=== PATIENT | female | born 1990 | race Caucasian/White ===

== ENCOUNTER → 2016-08-19 | Outpatient (REF) | payer MEDICAID ==
[~2016-08-19] MED LIST: /LORA10TA PO; ADV250INH INH; CONC54TA2 PO; ORTHDIS TD; PERCOCET FT; PERCOCET PO; VENTAER INH
== END ==
LOC: M SFHCPLAZ 16:52
PROVIDERS: ATTEND Nurse Practitioner Family
DX: J02.9 Acute pharyngitis, unspecified (principal)

== ENCOUNTER 2016-10-17 17:55 | Emergency (ER) | payer MEDICAID ==
[~2016-10-17] VITALS: Ht 157.5 cm; Wt 80.3 kg
[2016-10-17] MEDS ORDERED: ADVI200T PO (18:09)
[2016-10-17] MEDS ORDERED: MONT10TA2 PO (18:09)
[2016-10-17] MEDS ORDERED: FLUT11IN INH (18:09)
[2016-10-17] MEDS ORDERED: ONDANSETRON 4MG/2ML VIAL (J2405) IV ONE (19:30)
[2016-10-17] MEDS ORDERED: KETOROLAC 30 MG/ML VIAL (J1885) IV ONE (19:30)
[2016-10-17] MEDS ORDERED: NS 1,000 ML IV ONE (19:30)
[2016-10-17 20:07] LABS: BASO # 0.1 K/mm3 (0.0-0.2); BASO % 0.7 % (0.0-1.0); EOS # 0.1 K/mm3 (0.0-0.50); EOS % 1.1 % (0.0-3.0); LARGE UNSTAINED CELL # 0.1 K/mm3 (0.0-0.4); LARGE UNSTAINED CELL % 1.3 % (0.0-4.0); LYMPH # 2.3 K/mm3 (1.5-6.5); LYMPH % 25.8 % (24.0-44.0); MEAN CORPUSCULAR HGB CONC 32.5 g/dl (32.0-36.5); MONO # 0.7 K/mm3 (0.0-0.8); MONO % 8.2 % (0.0-5.0); NEUTROPHILS # 5.3 K/mm3 (1.8-7.7); PLATELET COUNT, AUTOMATED 282 k/mm3 (150-450); RED CELL DISTRIBUTION WIDTH 13.2 % (11.5-14.5); WHITE BLOOD COUNT 8.4 K/mm3 (4.0-10.0)
[2016-10-17 20:21] LABS: CONTROL LINE HCG INT CTR LINE PRESENT
[2016-10-17 20:22] LABS: ALBUMIN 3.6 GM/DL (3.2-5.2); ALKALINE PHOSPHATASE 71 U/L (45-117); ALT/SGPT 17 U/L (12-78); AMYLASE 46 U/L (25-115); ANION GAP 6 MEQ/L (8-16); AST/SGOT < 3 U/L (15-37); BILIRUBIN,DIRECT < 0.1 MG/DL (0.0-0.2); BILIRUBIN,TOTAL 0.2 MG/DL (0.2-1.0); BLOOD UREA NITROGEN 6 MG/DL (7-18); CALCIUM LEVEL 8.8 MG/DL (8.5-10.1); CARBON DIOXIDE LEVEL 30 MEQ/L (21-32); CHLORIDE LEVEL 105 MEQ/L (98-107); CREATININE FOR GFR 0.81 MG/DL (0.55-1.02); GLOMERULAR FILTRATION RATE > 60.0 (>60); GLUCOSE, FASTING 93 MG/DL (70-105); POTASSIUM SERUM 3.8 MEQ/L (3.5-5.1); SODIUM LEVEL 141 MEQ/L (136-145); TOTAL PROTEIN 7.6 GM/DL (6.4-8.2)
[2016-10-17] MEDS ORDERED: ISOVUE-370 76% 100ML VIAL (Q9967) As Ordered ONE (20:33)
--- NOTE | 2016-10-17 21:30 | REPUSA ---
CT of the abdomen and pelvis with contrast Clinical statement: Pain. Technique: Multiple axial CT images were obtained from the base of the lungs through the floor of the pelvis utilizing 5 mm axial slices after administration of nonionic intravenous contrast. Coronal an d sagittal reconstructions were also obtained. Comparison: 09/08/2012. Findings: Chest: The visualized lung bases are clear. Abdomen: The liver, spleen, pancreas, kidneys, gallbladder, and adrenal glands are unremarkable. The aorta is within normal limits. There is no evidence of abdominal lymphadenopathy or ascites. Pelvis: The bowel is unremarkable, with no obstructive or inflammatory changes. The urinary bladder i s within normal limits. The other pelvic structures appear grossly intact. There is no evidence of pe lvic lymphadenopathy or ascites. Bones: There are no suspicious osseous abnormalities seen. Impression: Unremarkable CT examination of the abdomen and pelvis.
[2016-10-17] MEDS ORDERED: ZOFR4TAB3 PO (22:04)
[2016-10-17 22:11] VITALS: BP 124/68
--- NOTE | 2016-10-18 09:01 | REP ---
PA LATERAL CHEST: 10/17/2016. Clinical history: Abdominal pain. Comparison: PA chest 10/03/2013, abdominal series 02/08/2008. Findings: PA chest: Lungs are well inflated without infiltrate, effusion, atelectasis or mass. Heart, mediastinal and hilar contours are normal. Airway intact and the bony thorax shows no focal lesion. No free air under the diaphragm. Impression: 1. No acute cardiopulmonary change. Negative chest. Signed by Shane Dixon MD 10/18/2016 08:53 A
[2016-10-18] MEDS ORDERED: CONC54TA4 PO (16:52)
[2016-10-18] MEDS ORDERED: CLAR10CA3 PO (16:52)
[2016-10-18] MEDS ORDERED: ALBU17IN INH (16:52)
[2016-10-18] MEDS ORDERED: ADV250INH INH (16:52)
--- NOTE | 2016-10-18 21:01 | ECGEPIP ---
Stationary ECG Study [facility] - ED Test Date: 2016-10-17 Pat Name: MARCO DENTON Department: Room: - Gender: F [employer]: daniel : 1990 Requested By: Carlos Mcdaniel Order Number: [id number] Reading MD: Ashanti Gary Measurements Intervals [place] Rate: 60 P: 29 WV: 132 QRS: 9 QRSD: 109 T: 20 QT: 385 QTc: 387 Interpretive Statements SINUS RHYTHM WITH SINUS ARRHYTHMIA NO PRIOR FOR COMPARISON Electronically Signed On 10-18-2016 21:00:54 EDT by Ashanti Gary
[2016-10-18] MEDS ORDERED: MACR100C3 PO (21:09)
[2016-10-18] MEDS ORDERED: ALFU10TA2 PO (21:15)
[2016-10-18] MEDS ORDERED: ZOFR4TAB3 PO (21:18)
== END 2016-10-17 22:14 | disposition home or self-care (01) ==
LOC: M ED 18:57
DX: R10.9 Unspecified abdominal pain (principal); R11.10 Vomiting, unspecified
CPT/HCPCS: 71020; 74177; 80048; 80076; 81001; 82150; 83690; 84703; 85025; 87086; 93005; 96374; 96375; 99284; J1885; J2405; Q9967

== ENCOUNTER 2016-10-18 16:25 | Emergency (ER) | payer MEDICAID ==
[~2016-10-18] VITALS: Ht 157.5 cm; Wt 79.8 kg
[~2016-10-18 16:25] MED LIST changes: +ADVI200T PO; +FLUT11IN INH; +MONT10TA2 PO; +ZOFR4TAB3 PO
[2016-10-18] MEDS ORDERED: ALBU17IN INH (16:52)
[2016-10-18] MEDS ORDERED: CLAR10CA3 PO (16:52)
[2016-10-18] MEDS ORDERED: CONC54TA4 PO (16:52)
[2016-10-18] MEDS ORDERED: ADV250INH INH (16:52)
[2016-10-18 19:03] LABS: BASO % 0.4 % (0.0-1.0); EOS # 0.1 K/mm3 (0.0-0.50); EOS % 1.2 % (0.0-3.0); LARGE UNSTAINED CELL # 0.1 K/mm3 (0.0-0.4); LARGE UNSTAINED CELL % 1.1 % (0.0-4.0); LYMPH # 2.7 K/mm3 (1.5-6.5); MEAN CORPUSCULAR HEMOGLOBIN 28.8 pg (27.0-33.0); MEAN CORPUSCULAR HGB CONC 32.3 g/dl (32.0-36.5); MEAN CORPUSCULAR VOLUME 89.2 fl (80.0-96.0); MONO # 0.6 K/mm3 (0.0-0.8); MONO % 5.6 % (0.0-5.0); NEUTROPHILS # 7.2 K/mm3 (1.8-7.7); NEUTROPHILS % 67.6 % (36.0-66.0); PLATELET COUNT, AUTOMATED 264 k/mm3 (150-450); RED CELL DISTRIBUTION WIDTH 13.1 % (11.5-14.5); WHITE BLOOD COUNT 10.7 K/mm3 (4.0-10.0)
[2016-10-18 19:17] LABS: CONTROL LINE HCG INT CTR LINE PRESENT
[2016-10-18 19:25] LABS: ALBUMIN 3.5 GM/DL (3.2-5.2); ALKALINE PHOSPHATASE 65 U/L (45-117); ALT/SGPT 17 U/L (12-78); ANION GAP 5 MEQ/L (8-16); AST/SGOT < 3 U/L (15-37); BILIRUBIN,TOTAL 0.3 MG/DL (0.2-1.0); BLOOD UREA NITROGEN 5 MG/DL (7-18); CALCIUM LEVEL 8.4 MG/DL (8.5-10.1); CARBON DIOXIDE LEVEL 29 MEQ/L (21-32); CHLORIDE LEVEL 105 MEQ/L (98-107); CREATININE FOR GFR 0.83 MG/DL (0.55-1.02); GLOMERULAR FILTRATION RATE > 60.0 (>60); GLUCOSE, FASTING 86 MG/DL (70-105); SODIUM LEVEL 139 MEQ/L (136-145); TOTAL PROTEIN 7.4 GM/DL (6.4-8.2)
--- NOTE | 2016-10-18 19:40 | REPUSA ---
Clinical history: Renal colic. Comparison: CT, 10/17/2016. Findings: The urinary bladder appears unremarkable. No urinary bladder masses are seen. The right kid martín measures 11.1 x 5.1 x 3.9 cm. The left kidney measures 12.0 x 5.4 x 5.8 cm. The kidneys demonstra te normal echotexture and echogenicity. There is no evidence of hydronephrosis or nephrolithiasis. No renal masses are seen. No free fluid is appreciated. Impression: Unremarkable ultrasound examination of the kidneys.
[2016-10-18] MEDS ORDERED: MACR100C3 PO (21:09)
[2016-10-18] MEDS ORDERED: NITROFURANTOIN (MACROBID) 100 MG CAP PO ONE (21:15)
[2016-10-18] MEDS ORDERED: ONDANSETRON 4 MG TAB (S0181) PO ONE (21:15)
[2016-10-18] MEDS ORDERED: ALFU10TA2 PO (21:15)
[2016-10-18] MEDS ORDERED: ZOFR4TAB3 PO (21:18)
[2016-10-18] MEDS ORDERED: KETOROLAC 30 MG/ML VIAL (J1885) As Ordered ONE (21:28)
[2016-10-18] MEDS ORDERED: KETOROLAC 60 MG/2 ML VIAL (J1885) IM ONE (21:30)
[2016-10-18 22:00] VITALS: BP 137/80
[2016-10-19] MEDS ORDERED: ALFUZOSIN 10 MG PO SCH (09:00)
== END 2016-10-18 22:05 | disposition home or self-care (01) ==
LOC: M ED 17:30
DX: N23 Unspecified renal colic (principal); N39.0 Urinary tract infection, site not specified

== ENCOUNTER → 2017-01-25 | Outpatient (CLI) | payer MEDICAID ==
[~2017-01-25] MED LIST changes: +ALBU17IN INH; +ALFU10TA2 PO; +CLAR10CA3 PO; +CONC54TA4 PO; +MACR100C43 PO
[2017-01-25 09:09] LABS: ANION GAP 8 MEQ/L (8-16); BLOOD UREA NITROGEN 9 MG/DL (7-18); CALCIUM LEVEL 9.2 MG/DL (8.5-10.1); CARBON DIOXIDE LEVEL 29 MEQ/L (21-32); CHLORIDE LEVEL 102 MEQ/L (98-107); CREATININE FOR GFR 0.71 MG/DL (0.55-1.02); GLOMERULAR FILTRATION RATE > 60.0 (>60); GLUCOSE, FASTING 85 MG/DL (70-105); POTASSIUM SERUM 4.3 MEQ/L (3.5-5.1); SODIUM LEVEL 139 MEQ/L (136-145)
== END ==
LOC: M LAB 07:51
PROVIDERS: ATTEND Nurse Practitioner Family
DX: E66.9 Obesity, unspecified (principal)

== ENCOUNTER 2017-06-05 22:44 | Emergency (ER) | payer MEDICARE, MEDICAID ==
[~2017-06-05] VITALS: Ht 157.5 cm; Wt 77.7 kg
[2017-06-06] MEDS ORDERED: AMOX500C PO (06:57)
[2017-06-06] MEDS ORDERED: cefTRIAXone SOD 1 GM VIAL (J0696) IM ONE (07:00)
[2017-06-06 07:29] VITALS: BP 131/75
== END 2017-06-06 07:30 | disposition home or self-care (01) ==
LOC: M ED 22:44
DX: J02.0 Streptococcal pharyngitis (principal); Z88.5 Allergy status to narcotic agent; Z88.2 Allergy status to sulfonamides; Z79.51 Long term (current) use of inhaled steroids
CPT/HCPCS: 87804; 87880; 96372; 99284; J0696

== ENCOUNTER 2017-10-04 17:33 | Emergency (ER) | payer MEDICARE, MEDICAID ==
[2017-10-04] MEDS: IBUPROFEN 600 MG TAB PO (21:00)
== END 2017-10-04 22:23 | disposition home or self-care (01) ==
LOC: M ED 17:33
DX: S83.002A Unspecified subluxation of left patella, initial encounter (principal); W01.0XXA Fall on same level from slipping, tripping and stumbling without subsequent striking against object, initial encounter; Y92.89 Other specified places as the place of occurrence of the external cause; Z79.899 Other long term (current) drug therapy; Z79.3 Long term (current) use of hormonal contraceptives; Z88.2 Allergy status to sulfonamides; Z88.5 Allergy status to narcotic agent
CPT/HCPCS: 73564

== ENCOUNTER 2017-10-11 14:26 | Outpatient (RCR) | payer MEDICARE, MEDICAID | END 2017-11-08 | LOC: M PT 10-14 07:26 | DX: Z47.89 Encounter for other orthopedic aftercare (principal); S86.912A Strain of unspecified muscle(s) and tendon(s) at lower leg level, left leg, initial encounter; M22.3X2 Other derangements of patella, left knee | CPT/HCPCS: 97110 ==

== ENCOUNTER 2018-04-06 20:38 | Emergency (ER) | payer MEDICARE, MEDICAID ==
[2018-04-06] MEDS: ACETAMINOPHEN 325 MG TAB PO (23:02)
== END 2018-04-07 00:39 | disposition home or self-care (01) ==
LOC: M ED 04-07 00:39
DX: M25.572 Pain in left ankle and joints of left foot (principal); Z88.5 Allergy status to narcotic agent; Z88.2 Allergy status to sulfonamides; Z79.899 Other long term (current) drug therapy; Z79.51 Long term (current) use of inhaled steroids
CPT/HCPCS: 73610

== ENCOUNTER 2018-05-23 07:09 | Outpatient (RCR) | payer MEDICARE, MEDICAID | END 2018-06-10 | LOC: M PT 07:09 | DX: S90.02XA Contusion of left ankle, initial encounter (principal); X58.XXXA Exposure to other specified factors, initial encounter; Y92.9 Unspecified place or not applicable; Y93.9 Activity, unspecified | CPT/HCPCS: 97110 ==

== ENCOUNTER → 2018-07-19 | Outpatient (REF) | payer MEDICARE, MEDICAID ==
[~2018-07-19] MED LIST changes: +AMOX500C PO; +IBUP-1022 PO; +VITA1CAP2 PO; +XULA1DIS TOP; +ZOFR4TAB14 PO; -ZOFR4TAB3 PO
[2018-07-19 12:05] LABS: BLOOD UREA NITROGEN 8 MG/DL (7-18); CARBON DIOXIDE LEVEL 29 MEQ/L (21-32); CHLORIDE LEVEL 105 MEQ/L (98-107); CHOLESTEROL LEVEL 225 MG/DL (<200); CHOLESTEROL RISK RATIO 3.125 (<5); CREATININE FOR GFR 0.74 MG/DL (0.55-1.30); GLOMERULAR FILTRATION RATE > 60.0 (>60); GLUCOSE, FASTING 88 MG/DL (70-100); HDL CHOLESTEROL 72 MG/DL (>40); LDL CHOLESTEROL 123 MG/DL (<100); NON-HDL-C 153 MG/DL; SODIUM LEVEL 141 MEQ/L (136-145); TRIGLYCERIDES LEVEL 148 MG/DL (<150)
== END ==
LOC: M SFHCPLAZ 07:59
PROVIDERS: ATTEND Nurse Practitioner Family
DX: Z13.220 Encounter for screening for lipoid disorders (principal); E66.9 Obesity, unspecified; E55.9 Vitamin D deficiency, unspecified

== ENCOUNTER 2018-09-04 17:03 | Emergency (ER) | payer MEDICARE, MEDICAID ==
[~2018-09-04] VITALS: Ht 157.5 cm; Wt 76.8 kg
[2018-09-04] MEDS ORDERED: OLOP0.2S (17:13)
[2018-09-04] MEDS ORDERED: PROAAER10 (17:13)
[2018-09-04] MEDS ORDERED: ONDANSETRON 4 MG ORAL DISINTEGRATING TAB (Q0162 PER 1MG) PO ONE (17:45)
[2018-09-04 18:05] LABS: INFLUENZA A AMPLIFICATION POSITIVE (NEGATIVE); INFLUENZA B AMPLIFICATION NEGATIVE (NEGATIVE)
[2018-09-04] MEDS ORDERED: OSEL75CA PO (18:28)
[2018-09-04] MEDS ORDERED: ONDA4TAB6 PO (18:29)
[2018-09-04] MEDS ORDERED: ACETAMINOPHEN 325 MG TAB PO ONE (18:30)
[2018-09-04] MEDS ORDERED: OSELTAMIVIR PHOSPHATE 75 MG CAP (TAMIFLU) PO ONE (18:30)
[2018-09-04 18:31] VITALS: BP 122/75
== END 2018-09-04 18:34 | disposition home or self-care (01) ==
LOC: M ED 17:03
DX: J09.X2 Influenza due to identified novel influenza A virus with other respiratory manifestations (principal); F90.9 Attention-deficit hyperactivity disorder, unspecified type; Z79.899 Other long term (current) drug therapy; Z88.2 Allergy status to sulfonamides; Z88.5 Allergy status to narcotic agent
CPT/HCPCS: 87502; 87880; 99284; Q0162

== ENCOUNTER → 2018-10-23 | Outpatient (CLI) | payer MEDICARE, MEDICAID ==
[~2018-10-23] MED LIST changes: -/LORA10TA PO; +LORA-385 PO; +OLOP0.2S; +ONDA4TAB6 PO; +OSEL75CA PO; +OXYC1TAB23 FT; +OXYC1TAB23 PO; -PERCOCET FT; -PERCOCET PO; +PROAAER10; +VITA-183 PO; -VITA1CAP2 PO
--- NOTE | 2018-10-24 09:31 | REP ---
Left wrist series: Four views. History: Ulnar sided wrist pain. Comparison left hand radiographs are from March 08, 2013. Findings: Four views of the left wrist demonstrate overall normal mineralization. Joint spaces are preserved. Alignment is normal. There is no radiographic evidence of arthropathy. Impression: Negative left wrist radiographs. Electronically Signed by Ricky Craig MD 10/23/2018 12:57 P
== END ==
LOC: M RAD 12:37
PROVIDERS: ATTEND Physician Assistant Medical
DX: M25.532 Pain in left wrist (principal)

== ENCOUNTER 2019-01-02 21:29 | Emergency (ER) | payer MEDICARE, MEDICAID ==
[~2019-01-02] VITALS: Ht 157.5 cm; Wt 68.1 kg
[2019-01-02 21:34] VITALS: BP 127/79
== END 2019-01-02 22:40 | disposition home or self-care (01) ==
LOC: M ED 21:29
DX: J06.9 Acute upper respiratory infection, unspecified (principal); H92.03 Otalgia, bilateral; J45.909 Unspecified asthma, uncomplicated; Z88.2 Allergy status to sulfonamides; Z88.5 Allergy status to narcotic agent; Z79.899 Other long term (current) drug therapy; Z79.51 Long term (current) use of inhaled steroids

== ENCOUNTER → 2019-01-25 | Outpatient (REF) ==
[2019-01-25 14:43] LABS: BASO % 0.4 % (0.0-1.0); EOS # 0.2 10^3/uL (0.0-0.50); EOS % 2.3 % (0.0-3.0); HEMATOCRIT 40.3 % (36.0-47.0); HEMOGLOBIN 13.1 g/dl (12.0-15.5); LYMPH # 2.4 10^3/uL (1.5-6.5); MEAN CORPUSCULAR HGB CONC 32.5 g/dl (32.0-36.5); MEAN CORPUSCULAR VOLUME 92.4 fl (80.0-96.0); MONO # 0.7 10^3/uL (0.0-0.8); MONO % 9.7 % (0.0-5.0); NEUTROPHILS # 3.6 10^3/uL (1.8-7.7); NEUTROPHILS % 52.2 % (36.0-66.0); PLATELET COUNT, AUTOMATED 285 10^3/uL (150-450); RED BLOOD COUNT 4.36 10^6/uL (4.00-5.40); WHITE BLOOD COUNT 6.9 10^3/uL (4.0-10.0)
== END ==
LOC: M LABSMT 13:47
PROVIDERS: ATTEND Allergy & Immunology Allergy
DX: J45.30 Mild persistent asthma, uncomplicated (principal)

== ENCOUNTER 2019-02-10 20:05 | Emergency (ER) | payer MEDICARE, MEDICAID ==
[~2019-02-10] VITALS: Ht 157.5 cm; Wt 72.3 kg
[~2019-02-10 20:05] MED LIST changes: -ALFU10TA2 PO; +ALFU10TA3 PO
[2019-02-10 22:17] VITALS: BP 155/103
[2019-02-10] MEDS ORDERED: NAPR-885 PO (22:27)
[2019-02-10] MEDS ORDERED: KETOROLAC TROMETHAMINE 10 MG TAB PO ONE (22:30)
--- NOTE | 2019-02-11 07:29 | REP ---
Clinical: Trauma. Technique: AP, lateral, bilateral oblique views left hand . Findings: The osseous structures and joint spaces are intact and normal. There is no evidence for acute fracture or dislocation. Surrounding soft tissues are unremarkable. No subcutaneous emphysema or radiodense foreign body. Impression: Normal left hand series . No acute fracture or dislocation. Electronically Signed by Darci Mcgovern MD 02/11/2019 07:21 A
--- NOTE | 2019-02-11 07:31 | REP ---
The clinical: Trauma. Technique: AP, lateral, bilateral oblique views left wrist . Findings: The carpal bones, surrounding osseous structures, soft tissues, and joint spaces are normal. There is no evidence for acute fracture or dislocation. No subcutaneous emphysema or radiodense foreign body. Impression: No acute fracture or dislocation Electronically Signed by Darci Mcgovern MD 02/11/2019 07:23 A
== END 2019-02-10 22:41 | disposition home or self-care (01) ==
LOC: M ED 20:05
DX: S60.222A Contusion of left hand, initial encounter (principal); W19.XXXA Unspecified fall, initial encounter; Y92.89 Other specified places as the place of occurrence of the external cause; Z88.2 Allergy status to sulfonamides; Z88.5 Allergy status to narcotic agent; Z79.899 Other long term (current) drug therapy; Z79.51 Long term (current) use of inhaled steroids; Z79.3 Long term (current) use of hormonal contraceptives

== ENCOUNTER → 2019-08-15 | Outpatient (REF) | payer MEDICARE, MEDICAID ==
[~2019-08-15] MED LIST changes: -MONT10TA2 PO; +MONT10TA4 PO; +NAPR-885 PO
[2019-08-15 11:47] LABS: ALBUMIN 3.9 GM/DL (3.2-5.2); ALT/SGPT 17 U/L (12-78); BILIRUBIN,TOTAL 0.4 MG/DL (0.2-1.0); BLOOD UREA NITROGEN 10 MG/DL (7-18); CALCIUM LEVEL 9.1 MG/DL (8.5-10.1); CARBON DIOXIDE LEVEL 31 MEQ/L (21-32); CHLORIDE LEVEL 105 MEQ/L (98-107); CHOLESTEROL LEVEL 273 MG/DL (<200); CHOLESTEROL RISK RATIO 2.676 (<5); CREATININE FOR GFR 0.75 MG/DL (0.55-1.30); GLOMERULAR FILTRATION RATE > 60.0 (>60); GLUCOSE, FASTING 82 MG/DL (70-100); HDL CHOLESTEROL 102 MG/DL (>40); LDL CHOLESTEROL 153 MG/DL (<100); NON-HDL-C 171 MG/DL; POTASSIUM SERUM 4.5 MEQ/L (3.5-5.1); SODIUM LEVEL 141 MEQ/L (136-145); TOTAL PROTEIN 7.4 GM/DL (6.4-8.2); TRIGLYCERIDES LEVEL 91 MG/DL (<150)
== END ==
LOC: M SFHCPLAZ 08:47
PROVIDERS: ATTEND Nurse Practitioner Family
DX: F90.8 Attention-deficit hyperactivity disorder, other type (principal); E78.5 Hyperlipidemia, unspecified; E55.9 Vitamin D deficiency, unspecified
CPT/HCPCS: 36415; 80053; 80061; 82306; 90682; G0463

== ENCOUNTER → 2021-01-06 | Outpatient (CLI) | payer MEDICARE, MEDICAID ==
[~2021-01-06] MED LIST changes: +MONT10TA10 PO; -MONT10TA4 PO; -OLOP0.2S; +OLOP2.5D7
[2021-01-06 11:31] LABS: ALBUMIN 3.5 GM/DL (3.2-5.2); ALT/SGPT 18 U/L (12-78); BILIRUBIN,TOTAL 0.2 MG/DL (0.2-1.0); BLOOD UREA NITROGEN 9 MG/DL (7-18); CARBON DIOXIDE LEVEL 30 MEQ/L (21-32); CHLORIDE LEVEL 103 MEQ/L (98-107); CHOLESTEROL LEVEL 260 MG/DL (<200); CHOLESTEROL RISK RATIO 2.921 (<5); CREATININE FOR GFR 0.66 MG/DL (0.55-1.30); GLOMERULAR FILTRATION RATE > 60.0 (>60); GLUCOSE, FASTING 83 MG/DL (70-100); HDL CHOLESTEROL 89 MG/DL (>40); LDL CHOLESTEROL 150 MG/DL (<100); NON-HDL-C 171 MG/DL; POTASSIUM SERUM 4.3 MEQ/L (3.5-5.1); SODIUM LEVEL 138 MEQ/L (136-145); TOTAL 25(OH) VITAMIN D 34.2 NG/ML (30.0-100.0); TOTAL PROTEIN 6.9 GM/DL (6.4-8.2); TRIGLYCERIDES LEVEL 104 MG/DL (<150)
== END ==
LOC: M PLALAB 08:23
PROVIDERS: ATTEND Nurse Practitioner Family
DX: E78.5 Hyperlipidemia, unspecified (principal); E55.9 Vitamin D deficiency, unspecified

== ENCOUNTER 2022-01-05 09:15 | Outpatient (RCR) | payer MEDICARE, MEDICAID ==
[~2022-01-05 09:15] MED LIST changes: -MONT10TA10 PO; +MONT10TA97 PO
== END 2022-01-08 ==
LOC: M PT 09:15
PROVIDERS: ATTEND Physician Assistant
DX: M25.562 Pain in left knee (principal)

== ENCOUNTER 2022-02-02 08:37 | Outpatient (RCR) | payer MEDICARE, MEDICAID | END 2022-02-08 | LOC: M PT 08:37 | PROVIDERS: ATTEND Physician Assistant | DX: M25.562 Pain in left knee (principal) ==

== ENCOUNTER → 2022-12-14 | Outpatient (CLI) | payer MEDICARE, MEDICAID ==
[2022-12-14 11:12] LABS: BASO % 0.4 % (0.0-1.0); EOS # 0.3 10^3/uL (0.0-0.5); EOS % 2.2 % (0.0-3.0); HEMATOCRIT 40.5 % (36.0-47.0); HEMOGLOBIN 13.4 g/dl (12.0-15.5); LYMPH # 2.3 10^3/uL (1.5-5.0); LYMPH % 20.4 % (24.0-44.0); MEAN CORPUSCULAR HEMOGLOBIN 29.8 pg (27.0-33.0); MEAN CORPUSCULAR HGB CONC 33.1 g/dl (32.0-36.5); MONO % 8.6 % (2.0-8.0); NEUTROPHILS # 7.6 10^3/uL (1.5-8.5); PLATELET COUNT, AUTOMATED 308 10^3/uL (150-450); WHITE BLOOD COUNT 11.2 10^3/uL (4.0-10.0)
[2022-12-14 11:41] LABS: TOTAL 25(OH) VITAMIN D 38.5 NG/ML (20.0-100.0)
[2022-12-14 11:42] LABS: THYROID STIMULATING HORMONE 2.615 uIU/ML (0.55-4.78)
[2022-12-14 11:44] LABS: FREE T4 1.03 NG/DL (0.89-1.76)
[2022-12-14 11:45] LABS: ALBUMIN 3.7 G/DL (3.2-5.2); ALKALINE PHOSPHATASE 86 U/L (46-116); ALT/SGPT 14 U/L (7.0-40); AST/SGOT < 8 U/L (<34); BILIRUBIN,TOTAL 0.5 MG/DL (0.3-1.2); BLOOD UREA NITROGEN 9 MG/DL (9-23); CALCIUM LEVEL 8.6 MG/DL (8.5-10.1); CARBON DIOXIDE LEVEL 29 MMOL/L (20-31); CHLORIDE LEVEL 103 MMOL/L (98-107); CHOLESTEROL LEVEL 222 MG/DL (<200); CHOLESTEROL RISK RATIO 2.74 (<5); CREATININE FOR GFR 0.81 MG/DL (0.55-1.30); GLOMERULAR FILTRATION RATE > 60.0 (>60); GLUCOSE, FASTING 77 MG/DL (60-100); HDL CHOLESTEROL 80.8 MG/DL (>40); NON-HDL-C 141.2 MG/DL; POTASSIUM SERUM 4.9 MMOL/L (3.5-5.1); SODIUM LEVEL 138 MMOL/L (136-145); TOTAL PROTEIN 6.8 G/DL (5.7-8.2); TRIGLYCERIDES LEVEL 106 MG/DL (<150)
== END ==
LOC: M PLALAB 08:57
PROVIDERS: ATTEND Nurse Practitioner Family
DX: E78.5 Hyperlipidemia, unspecified (principal); E55.9 Vitamin D deficiency, unspecified; F90.8 Attention-deficit hyperactivity disorder, other type; Z79.899 Other long term (current) drug therapy

== ENCOUNTER → 2023-07-20 | Outpatient (CLI) | payer MEDICARE, MEDICAID | LOC: M PLAIMG 10:21 | PROVIDERS: ATTEND Nurse Practitioner Family | DX: M25.511 Pain in right shoulder (principal) ==

== ENCOUNTER → 2023-12-10 | Outpatient (CLI) | payer MEDICAID, MEDICARE ==
[2023-12-10 12:10] LABS: BASO # 0.1 10^3/uL (0.0-0.2); BASO % 0.6 % (0.0-1.0); EOS # 0.4 10^3/uL (0.0-0.5); HEMATOCRIT 40.8 % (36.0-47.0); HEMOGLOBIN 13.5 g/dl (12.0-15.5); LYMPH # 1.8 10^3/uL (1.5-5.0); LYMPH % 21.5 % (24.0-44.0); MEAN CORPUSCULAR HEMOGLOBIN 30.5 pg (27.0-33.0); MEAN CORPUSCULAR HGB CONC 33.1 g/dl (32.0-36.5); MEAN CORPUSCULAR VOLUME 92.1 fl (80.0-96.0); MONO # 0.7 10^3/uL (0.0-0.8); MONO % 8.6 % (2.0-8.0); NEUTROPHILS # 5.3 10^3/uL (1.5-8.5); NEUTROPHILS % 64.1 % (36.0-66.0); PLATELET COUNT, AUTOMATED 270 10^3/uL (150-450); RED BLOOD COUNT 4.43 10^6/uL (4.00-5.40); WHITE BLOOD COUNT 8.3 10^3/uL (4.0-10.0)
[2023-12-10 12:32] LABS: HEMOGLOBIN A1c 4.8 % (4.0-6.0)
[2023-12-10 12:46] LABS: ALKALINE PHOSPHATASE 107 U/L (46-116); ALT/SGPT 24 U/L (7.0-40); AST/SGOT < 8 U/L (<34); BILIRUBIN,TOTAL 0.5 MG/DL (0.3-1.2); BLOOD UREA NITROGEN 12 MG/DL (9-23); CALCIUM LEVEL 8.9 MG/DL (8.5-10.1); CARBON DIOXIDE LEVEL 29 MMOL/L (20-31); CHLORIDE LEVEL 105 MMOL/L (98-107); CHOLESTEROL LEVEL 239 MG/DL (<200); CHOLESTEROL RISK RATIO 2.55 (<5); CREATININE FOR GFR 0.74 MG/DL (0.55-1.30); GLOMERULAR FILTRATION RATE > 60.0 (>60); GLUCOSE, FASTING 71 MG/DL (60-100); HDL CHOLESTEROL 93.5 MG/DL (>40); LDL CHOLESTEROL 113.7 MG/DL (<100); NON-HDL-C 145.5 MG/DL; POTASSIUM SERUM 4.5 MMOL/L (3.5-5.1); SODIUM LEVEL 138 MMOL/L (136-145); TOTAL PROTEIN 6.2 G/DL (5.7-8.2); TRIGLYCERIDES LEVEL 159 MG/DL (<150)
[2023-12-10 12:47] LABS: TOTAL 25(OH) VITAMIN D 43.6 NG/ML (20.0-100.0)
== END ==
LOC: M PLALAB 08:41
PROVIDERS: ATTEND Nurse Practitioner Family
DX: Z00.00 Encounter for general adult medical examination without abnormal findings (principal); E55.9 Vitamin D deficiency, unspecified; E78.5 Hyperlipidemia, unspecified; R73.09 Other abnormal glucose

== ENCOUNTER → 2024-07-31 | Outpatient (CLI) | payer MEDICARE ==
[~2024-07-31] MED LIST changes: +ADVA1AER9 INH; +ALFU10TA23 PO; -ALFU10TA3 PO; +ONDA-282 PO; -ONDA4TAB6 PO
[2024-08-01 23:07] LABS: AMPHETAMINE SCREEN, URINE Negative ng/mL (Cutoff=1000); BARBITURATES SCREEN, URINE Negative ng/mL (Cutoff=200); BENZODIAZEPINES, URINE SCREEN Negative ng/mL (Cutoff=200); CANNABINOID SCREEN, URINE Negative ng/mL (Cutoff=20); COCAINE SCREEN, URINE Negative ng/mL (Cutoff=300); CREATININE, URINE 94.2 mg/dL (20.0-300.0); METHADONE, URINE SCREEN Negative ng/mL (Cutoff=300); OPIATE SCREEN, URINE Negative ng/mL (Cutoff=300); OXYCODONE, SCREEN, URINE Negative ng/mL (Cutoff=100); PCP SCREEN, URINE Negative ng/mL (Cutoff=25); SPECIFIC GRAVITY, URINE 1.013 (.); pH, URINE 5.6 (4.5-8.9)
== END ==
LOC: M PLAIMG 09:09
PROVIDERS: ATTEND Nurse Practitioner Family
DX: F90.8 Attention-deficit hyperactivity disorder, other type (principal); S69.91XA Unspecified injury of right wrist, hand and finger(s), initial encounter; X58.XXXA Exposure to other specified factors, initial encounter; Y92.9 Unspecified place or not applicable; Y93.9 Activity, unspecified; Y99.9 Unspecified external cause status; Z79.899 Other long term (current) drug therapy
CPT/HCPCS: 73110; 73130; 80307; G0463

== ENCOUNTER 2024-08-11 20:19 | Emergency (ER) | payer MEDICARE ==
[2024-08-11 22:01] LABS: BASO % 0.3 % (0.0-1.0); EOS % 0.3 % (0.0-3.0); HEMATOCRIT 38.7 % (36.0-47.0); HEMOGLOBIN 12.7 g/dl (12.0-15.5); LYMPH # 2.4 10^3/uL (1.5-5.0); LYMPH % 18.5 % (24.0-44.0); MEAN CORPUSCULAR HEMOGLOBIN 27.8 pg (27.0-33.0); MEAN CORPUSCULAR HGB CONC 32.8 g/dl (32.0-36.5); MEAN CORPUSCULAR VOLUME 84.7 fl (80.0-96.0); MONO # 0.9 10^3/uL (0.0-0.8); MONO % 6.8 % (2.0-8.0); NEUTROPHILS # 9.5 10^3/uL (1.5-8.5); NEUTROPHILS % 73.6 % (36.0-66.0); PLATELET COUNT, AUTOMATED 358 10^3/uL (150-450); RED BLOOD COUNT 4.57 10^6/uL (4.00-5.40); WHITE BLOOD COUNT 12.9 10^3/uL (4.0-10.0)
[2024-08-11 22:27] LABS: CK-MB VALUE MASS < 1.0 NG/ML (<3.6)
[2024-08-11 22:28] LABS: HCG, SERUM QUALITATIVE NEGATIVE (NEGATIVE)
[2024-08-11 22:29] LABS: ALBUMIN 3.6 G/DL (3.2-5.2); ALKALINE PHOSPHATASE 95 U/L (35-104); ALT/SGPT 27 U/L (7.0-40); AST/SGOT 9 U/L (<34); BILIRUBIN,DIRECT < 0.1 MG/DL (<0.4); BILIRUBIN,TOTAL 0.3 MG/DL (0.3-1.2); BLOOD UREA NITROGEN 9 MG/DL (9-23); CALCIUM LEVEL 9.5 MG/DL (8.5-10.1); CARBON DIOXIDE LEVEL 26 MMOL/L (20-31); CHLORIDE LEVEL 104 MMOL/L (98-107); CPK CREATINE PHOSPHOKINASE 75 U/L (34-145); CREATININE FOR GFR 0.77 MG/DL (0.55-1.30); GLOMERULAR FILTRATION RATE > 60.0 (>60); GLUCOSE, FASTING 102 MG/DL (60-100); MB/CK RELATIVE INDEX 1.33 (< OR =4); POTASSIUM SERUM 3.8 MMOL/L (3.5-5.1); SODIUM LEVEL 139 MMOL/L (136-145); TOTAL PROTEIN 7.2 G/DL (5.7-8.2)
[2024-08-12] MEDS: IPRATROPIUM 0.5MG/ALBUTEROL 2.5MG INH SOL UD 3ML (DUONEB) NEB ONE (03:15)
[2024-08-12 03:19] VITALS: BP 142/86; TEMP 97.6; O2SAT 98
== END 2024-08-12 04:21 | disposition home or self-care (01) ==
LOC: M ED 20:19
DX: R07.89 Other chest pain (principal); R00.0 Tachycardia, unspecified; J45.901 Unspecified asthma with (acute) exacerbation; E55.9 Vitamin D deficiency, unspecified; F90.9 Attention-deficit hyperactivity disorder, unspecified type; Z88.2 Allergy status to sulfonamides; Z88.5 Allergy status to narcotic agent; Z79.51 Long term (current) use of inhaled steroids; Z79.899 Other long term (current) drug therapy

== ENCOUNTER → 2025-04-09 | Outpatient (CLI) | payer MEDICARE, MEDICAID ==
[~2025-04-09] MED LIST changes: -IBUP-1022 PO; +IBUP600T42 PO
== END ==
LOC: M PLAIMG 09:36
PROVIDERS: ATTEND Nurse Practitioner Family
DX: M25.552 Pain in left hip (principal); M25.562 Pain in left knee

== ENCOUNTER → 2025-04-25 | Outpatient (CLI) | payer MEDICARE, MEDICAID ==
[2025-04-25 10:52] LABS: BASO # 0.1 10^3/uL (0.0-0.2); BASO % 0.5 % (0.0-1.0); EOS # 0.3 10^3/uL (0.0-0.5); EOS % 2.1 % (0.0-3.0); LYMPH # 2.3 10^3/uL (1.5-5.0); LYMPH % 17.5 % (24.0-44.0); MONO # 0.9 10^3/uL (0.0-0.8); MONO % 7.2 % (2.0-8.0); NEUTROPHILS # 9.3 10^3/uL (1.5-8.5); NEUTROPHILS % 72.2 % (36.0-66.0); PLATELET COUNT, AUTOMATED 326 10^3/uL (150-450)
[2025-04-25 11:22] LABS: ESTIMATED AVERAGE GLUCOSE 108.0 MG/DL (60-110)
[2025-04-25 11:24] LABS: ALT/SGPT 14 U/L (7.0-40); AST/SGOT < 8 U/L (<34); CALCIUM LEVEL 9.1 MG/DL (8.5-10.1); CARBON DIOXIDE LEVEL 26 MMOL/L (20-31); CHLORIDE LEVEL 102 MMOL/L (98-107); CHOLESTEROL LEVEL 267 MG/DL (<200); CHOLESTEROL RISK RATIO 3.53 (<5); CREATININE FOR GFR 0.74 MG/DL (0.55-1.30); FREE T4 1.18 NG/DL (0.89-1.76); GLOMERULAR FILTRATION RATE > 90.0 (>60); LDL CHOLESTEROL 154.7 MG/DL (<100); NON-HDL-C 191.5 MG/DL; POTASSIUM SERUM 4.8 MMOL/L (3.5-5.1); SODIUM LEVEL 140 MMOL/L (136-145); TRIGLYCERIDES LEVEL 184 MG/DL (<150)
[2025-04-25 11:26] LABS: TOTAL 25(OH) VITAMIN D 40.1 NG/ML (20.0-100.0)
== END ==
LOC: M PLALAB 08:41
PROVIDERS: ATTEND Nurse Practitioner Family
DX: E78.5 Hyperlipidemia, unspecified (principal); E55.9 Vitamin D deficiency, unspecified; J45.909 Unspecified asthma, uncomplicated; R73.09 Other abnormal glucose

== ENCOUNTER 2025-04-27 20:24 | Emergency (ER) | payer MEDICARE, MEDICAID ==
[~2025-04-27] VITALS: Ht 157.5 cm; Wt 89.7 kg
[2025-04-27 20:42] LABS: VENOUS BASE EXCESS -4.9 (-2.0-2.0); VENOUS HCO3 21.0 MMOL/L (23.0-27.0); VENOUS O2 SATURATION 78.0 % (60.0-80.0); VENOUS PARTIAL PRESSURE CO2 41.9 mmHg (38.0-50.0); VENOUS PARTIAL PRESSURE O2 48.7 mmHg (30.0-50.0); VENOUS PH 7.318 UNITS (7.330-7.430); VENOUS STANDARD HCO3 20.1 MMOL/L; VENOUS TOTAL CO2 22.3 MMOL/L (24.0-28.0)
[2025-04-27 20:58] LABS: BASO # 0.1 10^3/uL (0.0-0.2); BASO % 0.2 % (0.0-1.0); EOS # 0.1 10^3/uL (0.0-0.5); EOS % 0.4 % (0.0-3.0); LYMPH # 2.8 10^3/uL (1.5-5.0); LYMPH % 13.8 % (24.0-44.0); MONO # 1.3 10^3/uL (0.0-0.8); MONO % 6.2 % (2.0-8.0); NEUTROPHILS # 16.0 10^3/uL (1.5-8.5); NEUTROPHILS % 78.7 % (36.0-66.0); PLATELET COUNT, AUTOMATED 364 10^3/uL (150-450)
[2025-04-27 21:22] LABS: CK-MB VALUE MASS < 1.0 NG/ML (<3.6)
[2025-04-27 21:23] LABS: ETHYL ALCOHOL (ETHANOL) < 0.003 % (0.000-0.010)
[2025-04-27 21:25] LABS: CPK CREATINE PHOSPHOKINASE 62 U/L (34-145)
[2025-04-27 21:27] LABS: HCG, SERUM QUALITATIVE NEGATIVE (NEGATIVE)
[2025-04-27 21:29] LABS: CALCIUM LEVEL 8.1 MG/DL (8.5-10.1); CARBON DIOXIDE LEVEL 24 MMOL/L (20-31); CHLORIDE LEVEL 105 MMOL/L (98-107); CREATININE FOR GFR 1.25 MG/DL (0.55-1.30); GLOMERULAR FILTRATION RATE 58.4 (>60); MAGNESIUM LEVEL 1.6 MG/DL (1.8-2.4); POTASSIUM SERUM 4.1 MMOL/L (3.5-5.1); SODIUM LEVEL 140 MMOL/L (136-145)
[2025-04-27 21:45] LABS: AMPHETAMINES LEVEL URINE NEGATIVE (NEGATIVE)
[2025-04-27 21:46] LABS: BARBITURATES URINE NEGATIVE (NEGATIVE); BENZODIAZEPINES URINE NEGATIVE (NEGATIVE); CANNABINOIDS URINE NEGATIVE (NEGATIVE); COCAINE METABOLITE URINE NEGATIVE (NEGATIVE); METHADONE URINE NEGATIVE (NEGATIVE); OPIATES URINE NEGATIVE (NEGATIVE); PHENCYCLIDINE URINE NEGATIVE (NEGATIVE)
[2025-04-27 22:34] LABS: CK-MB VALUE MASS < 1.0 NG/ML (<3.6)
[2025-04-27 22:36] LABS: CPK CREATINE PHOSPHOKINASE 65 U/L (34-145)
[2025-04-28 00:35] LABS: AMORPHOUS SEDIMENT SMALL (NEGATIVE); APPEARANCE, URINE CLOUDY (CLEAR); BACTERIA, URINE AUTO 1+ (NEGATIVE); BILIRUBIN, URINE AUTO NEGATIVE (NEGATIVE); BLOOD, URINE BLOOD NEGATIVE (NEGATIVE); GLUCOSE, URINE (UA) AUTO NEGATIVE (NEGATIVE); KETONE, URINE AUTO TRACE mg/dL (NEGATIVE); LEUKOCYTE ESTERASE, URINE AUTO 1+ (NEGATIVE); MUCUS, URINE SMALL (NEGATIVE); NITRITE, URINE AUTO NEGATIVE (NEGATIVE); PROTEIN, URINE AUTO 1+ mg/dL (NEGATIVE); RBC, URINE AUTO 8 /HPF (0-3); SPECIFIC GRAVITY URINE AUTO 1.016 (1.002-1.035); SQUAMOUS EPITHELIAL CELL UR AU 10 /HPF (0-6); UROBILINOGEN, URINE AUTO 0.2 mg/dL (0.0-2.0); WBC, URINE AUTO 45 /HPF (0-3)
[2025-04-28] MEDS: MAG SULF 1GM/100ML (MAG RUN) 1 GM in IV 1 EA IV ONE (00:36)
[2025-04-28] MEDS: NS (Normal Saline) 0.9% 1,000 ML IV ONE (00:36)
[2025-04-28 01:30] VITALS: BP 113/57; O2SAT 97
[2025-04-28 01:39] VITALS: TEMP 98.7
== END 2025-04-28 01:46 | disposition home or self-care (01) ==
LOC: M ED 20:24
DX: R55 Syncope and collapse (principal); E83.42 Hypomagnesemia; E86.0 Dehydration; I10 Essential (primary) hypertension; J45.909 Unspecified asthma, uncomplicated; F90.9 Attention-deficit hyperactivity disorder, unspecified type; Z88.2 Allergy status to sulfonamides; Z88.5 Allergy status to narcotic agent; Z79.51 Long term (current) use of inhaled steroids; Z79.899 Other long term (current) drug therapy
CPT/HCPCS: 70450; 71045; 80047; 80048; 80307; 81001; 82077; 82550; 82553; 82803; 83605; 83735; 84145; 84443; 84484; 84703; 85025; 87486; 87581; 87633; 87798; 93005; 93041; 94760; 96365; 99285; J3475

== ENCOUNTER 2025-05-01 11:35 | Emergency (ER) | payer MEDICARE, MEDICAID ==
[~2025-05-01] VITALS: Ht 157.5 cm; Wt 96.4 kg
[2025-05-01] MEDS ORDERED: MINO100C4 PO (12:21)
[2025-05-01] MEDS ORDERED: FAMO20TA PO (12:21)
[2025-05-01] MEDS ORDERED: SPRI28TA PO (12:21)
[2025-05-01] MEDS ORDERED: DEXM1CAP16 PO (12:21)
[2025-05-01] MEDS ORDERED: LISI5TAB11 PO (12:21)
[2025-05-01] MEDS ORDERED: OMEP40CA4 PO (12:21)
[2025-05-01] MEDS: FAMOTIDINE 20 MG/2 ML VIAL IVP ONE (12:38)
[2025-05-01 14:15] VITALS: BP 130/69; TEMP 98.4; O2SAT 98
== END 2025-05-01 14:34 | disposition home or self-care (01) ==
LOC: EDBD 11:35 → M ED 11:35
DX: T78.3XXA Angioneurotic edema, initial encounter (principal); I10 Essential (primary) hypertension; F90.9 Attention-deficit hyperactivity disorder, unspecified type; Z88.2 Allergy status to sulfonamides; Z88.5 Allergy status to narcotic agent; Z88.8 Allergy status to other drugs, medicaments and biological substances; Z79.52 Long term (current) use of systemic steroids; Z79.899 Other long term (current) drug therapy; Z79.1 Long term (current) use of non-steroidal anti-inflammatories (NSAID); Z87.42 Personal history of other diseases of the female genital tract
CPT/HCPCS: 93041; 94760; 96374; 99285; J1100; J1308

== ENCOUNTER → 2025-05-30 | Outpatient (CLI) | payer MEDICARE, MEDICAID ==
[~2025-05-30] MED LIST changes: +DEXM1CAP16 PO; +FAMO20TA PO; +LISI5TAB11 PO; +MINO100C4 PO; +OMEP40CA4 PO; +SPRI28TA PO
== END ==
LOC: M WHC 07:35
PROVIDERS: ATTEND Nurse Practitioner Family
DX: I10 Essential (primary) hypertension (principal)